=== PATIENT | female | born 1985 | race Caucasian/White ===

== ENCOUNTER 2017-07-06 04:44 | Inpatient (IN) | payer BC ==
[2017-07-06] MEDS ORDERED: Penicillin G Potassium IV* 5 MILLION.UNITS VIAL ONE (05:23)
[2017-07-06 05:33] LABS: Hematocrit 40 % (35-47); Mean Corpuscular HGB Conc 35 g/dl (31-36); Mean Corpuscular Hemoglobin 30 pg (27-31); Mean Corpuscular Volume 87 fL (80-97); Mean Platelet Volume 9 um3 (7.4-10.4); Red Blood Count 4.66 10^6/ul (4.0-5.4); Red Cell Distribution Width 15 % (10.5-15); White Blood Count 13.3 10^3/ul (3.5-10.8)
[2017-07-06 05:53] LABS: Comments Flag Yes
[2017-07-06 05:54] LABS: Add Diff/Slide Review? Slide Review Added
[2017-07-06] MEDS ORDERED: Oxytocin in LR* 20 UNITS/1,000 ML BAG IVPB SCH (16:15)
[2017-07-06] MEDS ORDERED: Oxytocin in LR* 20 UNITS/1,000 ML BAG IVPB ONE (16:23)
[2017-07-06] MEDS ORDERED: Acetaminophen TAB* 325 MG PO PRN (19:08)
[2017-07-06] MEDS ORDERED: Witch Hazel PAD* JAR TOPICAL PRN (19:08)
[2017-07-06] MEDS ORDERED: Glycerin ADULT SUPP PR PRN (19:08)
[2017-07-06] MEDS ORDERED: Dibucaine 1% 28.35 GM TUBE PR PRN (19:08)
[2017-07-06] MEDS ORDERED: Ibuprofen TAB* 600 MG PO PRN (19:08)
[2017-07-06] MEDS ORDERED: Simethicone TAB* 80 MG TAB.CHEW PO SCH (21:00)
[2017-07-07 06:32] LABS: Hematocrit 38 % (35-47); Hemoglobin 12.9 g/dl (12.0-16.0); Mean Corpuscular HGB Conc 34 g/dl (31-36); Mean Corpuscular Hemoglobin 30 pg (27-31); Mean Corpuscular Volume 87 fL (80-97); Mean Platelet Volume 8 um3 (7.4-10.4); Red Blood Count 4.37 10^6/ul (4.0-5.4); Red Cell Distribution Width 14 % (10.5-15); White Blood Count 16.6 10^3/ul (3.5-10.8)
[2017-07-07 06:36] LABS: Add Diff/Slide Review? Slide Review Added; Comments Flag Yes
[2017-07-07 08:09] LABS: Immature Granulocytes 3 % (0-9); Metamyelocytes % 1 % (0-2); Myelocytes % 1 % (0-1); Neutrophil % 78 % (38-83); RBC Morphology Normal (Normal); Reactive Lymph % 1 % (0-6)
[2017-07-07] MEDS: Docusate CAP* 100 MG PO SCH ×4 (08:38→21:27)
[2017-07-07] MEDS: Ferrous Gluconate TAB* 324 MG TAB PO SCH ×2 (08:38→19:03)
[2017-07-08 08:27] VITALS: BP 105/61
[2017-07-08] MEDS: Docusate CAP* 100 MG PO SCH (09:31)
== END 2017-07-08 13:22 | disposition home or self-care (01) | DRG 560 ==
LOC: MCHOBOUT 04:44 → MCHOB 05:09
PROVIDERS: ADMIT Midwife; ATTEND Midwife
PROC: 10E0XZZ Delivery of Products of Conception, External Approach (ICD-10-PCS; principal; 2017-07-06)
PROC: 10907ZC Drainage of Amniotic Fluid, Therapeutic from Products of Conception, Via Natural or Artificial Opening (ICD-10-PCS; 2017-07-06)
PROC: 4A1HXCZ Monitoring of Products of Conception, Cardiac Rate, External Approach (ICD-10-PCS; 2017-07-06)
DX: O69.1XX0 Labor and delivery complicated by cord around neck, with compression, not applicable or unspecified (principal); O77.0 Labor and delivery complicated by meconium in amniotic fluid; O99.824 Streptococcus B carrier state complicating childbirth; Z3A.39 39 weeks gestation of pregnancy; Z37.0 Single live birth
CPT/HCPCS: 36415; 85025; 86850; 86900; 86901; A9270-GY; J2540